=== PATIENT | male | born 1965 | race Hispanic/Latino ===

== ENCOUNTER → 2020-05-08 14:47 | Outpatient (CLI) | payer OTHER, SELFPAY ==
[2020-05-09 13:55] LABS: COVID19 Sendout Not Detected (Not Detect)
== END ==
PROVIDERS: PCP Internal Medicine; Visit Provider Nurse Practitioner
DX: Z11.59 Encounter for screening for other viral diseases (principal)
CPT/HCPCS: 87635

== ENCOUNTER 2020-05-11 14:06 | Day surgery (SDC) | payer OTHER, SELFPAY ==
--- NOTE | 2020-05-11 | PATH_ITS ---
[facility] Accession Number: [id number] . 01 Material submitted: . PART A: cecum - CECAL POLYP 8MM PART B: sigmoid colon - SIGMOID POLYP X2 . 02 Diagnosis: A. Cecum, Polyp 8 mm, Biopsy: Tubular adenoma. . B. Sigmoid Colon, Polyp x2, Biopsy: Fragments of tubular adenoma and hyperplastic polyp. MRV 05/15/2020 1054 Local . 02 Electronically signed: . Herminia Martinez MD, Pathologist NPI- [id number] . 01 Gross description: . A. The specimen is received in formalin, labeled cecum polyp, and consists of two deluna fragments of soft tissue measuring 0.3 x 0.2 x 0.2 cm in aggregate. The specimen is entirely submitted in cassette A1. B. The specimen is received in formalin, labeled sigmoid colon polyp, and consists of multiple deluna-pink fragments of soft tissue measuring 1.0 x 0.7 x 0.2 cm in aggregate. The specimen is entirely submitted in cassette B1. ([id number]) /[facility] 05/12/2020 1712 Local . 02 Pathologist provided ICD-10: D12.0, D12.5 . 02 CPT . 577328, [id number] Performed at: 01 [facility] [address], [place], [place] [id number] MD James Linares MD Phone: [phone] Performed at: 02 [facility] [address] [place], [place] [id number] MD Herminia Martinez MD Phone: [phone]
--- NOTE | 2020-05-11 12:04 | P.HP_ITS ---
History of Present Illness History of Present Illness Date Patient Seen: 05/11/20 Chief complaint: SDC Narrative: 55 Years Old Male seen today for consideration of a screening colonoscopy. Last colonoscopy in 2002 status post a ruptured appendix that required a cholecystectomy and a partial colectomy. There have been no lower GI symptoms suggesting disease such as change in bowel habits, bleeding, abdominal pain or anemia. There's been no family history of colon cancer or colon polyps. Overall health issues have been stable, including no major cardiac events for at least 6 weeks. Past Medical History: broken bones sciatica stomach ulcer/reflux Hyperlipidemia Alcohol use Nicotine addiction Past Surgical History: Appy rupture 2002 with partial colectomy. Cholecystectomy 2002. ORIF Left ankle 1987 Forearm surgery 1977 Colonoscopy 2002 Family History: Reviewed history from 02/28/2020 and no changes required: Father: - Stroke, MS, alcohol abuse Mother: healthy Siblings: brother- alcoholic and 2 half sisters- healthy, obesity Maternal uncle with type 1 DM lived to age 65. 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 Patient History Medical History (Updated 05/11/20 @ 14:28 by Herminia Fox RN) Broken arm (Acute) Surgical History (Updated 05/11/20 @ 14:28 by Herminia Fox RN) History of appendectomy (Acute) Meds Home Medications and Allergies Home Medications Medication Instructions Recorded Confirmed Type acetaminophen [Tylenol] 650 mg PO Q6H PRN 05/11/20 05/11/20 History diphenhydramine HCl 50 mg PO DAILY 05/11/20 05/11/20 History ibuprofen 800 mg PO Q6H PRN 05/11/20 05/11/20 History multivitamin 1 tab PO DAILY 05/11/20 05/11/20 History omega 7-sun-hfk-fish oil [Fish Oil] 1 cap PO DAILY 05/11/20 05/11/20 History Allergies Allergy/AdvReac Type Severity Reaction Status Date / Time No Known Drug Allergies Allergy Verified 05/11/20 14:28 Review of Systems Review of Systems ROS: Yes All systems reviewed with the patient and are negative except as otherwise documented Exam Narrative Exam Narrative: GENERAL: Alert and oriented, appearing stated age and in no acute distress. HEENT: Head normocephalic/atraumatic. Pupils equal, round, and reactive to light and accomodation. Extraocular muscles intact. Tympanic membranes clear. Nasal mucosa moist, septum midline. Oral mucosa moist, no lesions. Neck soft and supple, no lymphadenopathy. LUNGS: Clear to ausculation bilaterally, no wheezes, rhonchi or rales. CV: Normal S1 and S2 with regular rate and rhythm, no audible murmurs, rubs or gallops. ABDOMEN: Soft, non-tender, non-distended, no organomegaly. Positive bowel sounds. EXTREMITIES: No clubbing, cyanosis, or edema. NEURO: Cranial nerves II through XII grossly intact, no focal deficits. PSYCH: Alert and oriented x 3. SKIN: No concerning lesions. Assessment & Plan Assessment & Plan narrative: 1. Screening for colon cancer Plan for colonoscopy. The nature and character of the procedure as well as anticipated results were discussed. The possibility of not completing the procedure was also discussed. Possible complications including aspiration pneumonia, bleeding, perforation and reaction to medications either for sedation or preparation and missed lesions were discussed. Questions were answered and proceeding to the colonoscopy was elected. Informed consent signed. I sincerely appreciate the referral allowing me to participate in this patient's care. Please contact me with any questions or concerns.
--- NOTE | 2020-05-11 12:05 | PM.OP.ENDO ---
Operative Date/Time/Diagnoses Date of procedure: 05/11/20 Procedure Notes SCOAP/Timeout: 3:12 p.m. Procedure in detail: ENDOSCOPIST: Toya Vee MD Sedation RN: Fahad Handy RN Sedation start time: 3:13 p.m. Sedation end time: 3:57 p.m. PROCEDURE: Colonoscopy INDICATIONS: 1. Screening for colon cancer MEDICATION: Levsin 0.125 mg sublingual, incremental doses of Versed and fentanyl until appropriate level sedation achieved. ASA CLASS: 2 CECAL WITHDRAWAL TIME: 33 minutes COMPLICATIONS: None. EXTENT OF PROCEDURE: Cecum. QUALITY OF PREP: Good with portions of liquid stool. PROCEDURE: Prior to insertion of the colonoscope, a digital rectal examination was accomplished with circumferential palpation of the distal rectal mucosa without significant findings being noted. The high-definition colonoscope was passed into the rectum in the usual fashion and advanced over to the cecum without difficulty. The ileocecal valve, appendiceal stoma, and medial wall all could be inspected and an 8 mm cecal polyp was seen and removed with cold biopsy forceps. ASCENDING COLON: As the colonoscope was withdrawn, care was taken to expose and inspect the haustral folds and no abnormalities were seen. HEPATIC FLEXURE: Normal, no polyps, diverticula or other abnormalities. TRANSVERSE COLON: Normal, no polyps, diverticula or other abnormalities. DESCENDING COLON: Minor diverticulosis, otherwise, normal, no polyps or other abnormalities. SIGMOID COLON: 2 polyps approximately 4 mm each, first was lifted with saline and removed with cold snare. Second was removed with Jumbo forceps. Otherwise minor diverticulosis and no other abnormalities. RECTUM: Normal. J maneuver was produced. There was no significant perianal disease. The J maneuver was broken. The remainder of the rectum was inspected and there was [] no external hemorrhoid disease. The scope was withdrawn. IMPRESSION: 1. Cecal polyp x1, 8 mm, removed with cold biopsy forceps 2. Sigmoid polyp x2, 4 mm, 1 lifted with saline and removed with cold snare, the other removed with Jumbo forceps 3. Left-sided diverticulosis, mild PLAN: 1. Follow-up in clinic status post pathology results. The possibility of a missed lesion including a malignancy has been discussed with the patient previously. Potential alarm symptoms have been discussed and should be reported immediately.
[2020-05-11] MEDS: LACTATED RINGERS 1,000 ML 200 ML IV (14:26)
[2020-05-11] MEDS: HYOSCYAMINE 0.125 MG TABLET PO (14:26)
[2020-05-11 14:39] VITALS: BP 125/76; PULSE 67; RESP 16; TEMP 36.5; O2SAT 100; BMI 25.0
[2020-05-11] MEDS: MIDAZOLAM 5 MG/5 ML VIAL IV ×2 (15:10→15:28)
[2020-05-11] MEDS: fentaNYL 250 MCG/5 ML INJ IV (15:11)
[2020-05-11 16:02] VITALS: BP 109/75; PULSE 62; RESP 11; TEMP 36.6; O2SAT 98
[2020-05-11 16:07] VITALS: BP 109/59; PULSE 80; RESP 16; O2SAT 97
[2020-05-11 16:12] VITALS: BP 116/84; PULSE 89; RESP 22; O2SAT 99
[2020-05-11 16:16] VITALS: BP 121/87; PULSE 74; RESP 18; O2SAT 96
[2020-05-11 16:22] VITALS: BP 125/81; PULSE 66; RESP 16; TEMP 36.4; O2SAT 98
== END 2020-05-11 16:33 | disposition home or self-care (01) ==
PROVIDERS: PCP Internal Medicine; Referring Provider Student in an Organized Health Care Education/Training Program; Visit Provider Student in an Organized Health Care Education/Training Program
PROC: 0DJD8ZZ Inspection of Lower Intestinal Tract, Via Natural or Artificial Opening Endoscopic (ICD-10-PCS; CPT 45378; principal; 2020-05-11 15:15)
DX: K57.30 Diverticulosis of large intestine without perforation or abscess without bleeding (principal); D12.0 Benign neoplasm of cecum; D12.5 Benign neoplasm of sigmoid colon; Z12.11 Encounter for screening for malignant neoplasm of colon
CPT/HCPCS: 45385; 45380; J2250; J3010

== ENCOUNTER → 2023-02-26 10:08 | Outpatient (CLI) | payer OTHER, SELFPAY ==
--- NOTE | 2023-02-26 10:10 | DI.RAD.S_ITS ---
PROCEDURE: XR KNEE RT 3V INDICATIONS: Right knee pain after twisting TECHNIQUE: 3 views of the knee were acquired. COMPARISON: None. FINDINGS: Bones: No fractures or dislocations. No suspicious bony lesions. Mild osteoarthritic changes. Soft tissues: No joint effusion. A sclerotic focus in the distal femoral metaphysis. IMPRESSION: 1. No acute osseous abnormalities. If clinical symptoms persist or clinical suspicion for pathology is high, a repeat examination in 7-10 days, or advanced imaging such as CT or MRI is suggested for further evaluation. 2. Mild osteoarthritis. 3. There is a sclerotic focus in the distal femoral metaphysis, most likely a bone island. Dictated by: Mary Lou Connelly M.D. on 02/26/2023 at 12:45 Approved by: Mary Lou Connelly M.D. on 02/26/2023 at 12:47
== END ==
PROVIDERS: PCP Internal Medicine; Referring Provider Physician Assistant; Visit Provider Physician Assistant
DX: S83.8X1A Sprain of other specified parts of right knee, initial encounter (principal); M17.11 Unilateral primary osteoarthritis, right knee; X58.XXXA Exposure to other specified factors, initial encounter
CPT/HCPCS: 73562